=== PATIENT | female | born 1940 | race Caucasian/White ===

== ENCOUNTER 2017-06-16 06:00 | Day surgery (SDC) | payer MEDICARE, BC ==
[2017-06-16] MEDS ORDERED: ACETAZOLAMIDE 500 MG CER ONE (06:02)
[2017-06-16] MEDS ORDERED: KETOROLAC 0.5% OPTH 60 DROP SOL ONE (06:03)
[2017-06-16] MEDS ORDERED: ACETAZOLAMIDE 250 MG PO ONE (06:04)
[2017-06-16] MEDS: PROPARACAINE HCL 0.5% OPHTHALMIC SOL ONE ×3 (06:19→07:38)
[2017-06-16] MEDS: PHENYLEPHRINE HCL 10% OPHTHAL SOL ONE ×2 (06:20→06:33)
[2017-06-16] MEDS: CYCLOPENTOLATE 1% SOL ONE ×3 (06:20→06:35)
[2017-06-16 06:25] VITALS: PULSE 84; RESP 20
[2017-06-16] MEDS ORDERED: FENTANYL 100MCG/2ML SOL ONE (06:52)
[2017-06-16] MEDS ORDERED: MIDAZOLAM 2 MG/2 ML SOL ONE (06:53)
[2017-06-16] MEDS ORDERED: POVIDONE IODINE 5% SOL ONE (06:58)
[2017-06-16] MEDS ORDERED: BSS 500 ML 500 ML IR ONE (06:58)
[2017-06-16] MEDS ORDERED: LIDOCAINE HCL 1% MPF SOL ONE (06:58)
[2017-06-16] MEDS ORDERED: KETOROLAC TROMETHAMINE 30 MG/ML SOL ONE (07:14)
[2017-06-16] MEDS ORDERED: CEFUROXIME SODIUM/0.9% NACL/PF 10 MG/ML VIAL IO ONE (07:14)
[2017-06-16] MEDS ORDERED: TRIAMCINOLONE ACETONIDE 10 MG/ML VIAL ONE (07:21)
[2017-06-16] MEDS ORDERED: TRIAMCINOLONE ACETONIDE 40 MG/ML SUS ONE (07:21)
[2017-06-16 08:16] VITALS: BP 127/70; TEMP 98; O2SAT 97
== END 2017-06-16 08:30 | disposition home or self-care (01) | DRG 125 ==
LOC: SURG 06:00
PROVIDERS: ATTEND Ophthalmology
DX: H26.9 Unspecified cataract (principal)
CPT/HCPCS: J1885; J2250; J3010; A9270-GY; J0697; J2001; J3300

== ENCOUNTER 2018-08-04 07:31 | Day surgery (SDC) | payer BC, MEDICARE ==
[2018-08-04] MEDS ORDERED: PROPOFOL 500 MG/50 ML EMU IV ONE (07:54)
[2018-08-04] MEDS ORDERED: FENTANYL 100MCG/2ML SOL ONE (07:54)
[2018-08-04] MEDS ORDERED: LIDOCAINE HCL 1% MPF 30 SOL ONE (07:54)
[2018-08-04] MEDS ORDERED: CEFAZOLIN SODIUM 1 GM PDS ONE ×3 (09:01→09:02)
[2018-08-04] MEDS: BUPIVACAINE/EPI 0.5% 10 ML SOL INFIL ONE ×2 (09:07→09:15)
[2018-08-04] MEDS ORDERED: EPHEDRINE SULFATE 50 MG/ML SOL ONE (09:34)
[2018-08-04 10:46] VITALS: RESP 17; TEMP 96.2
[2018-08-04 10:59] VITALS: O2SAT 97
[2018-08-04] MEDS ORDERED: APAP/HYDROCODONE 1 EACH TABLET PO PRN (11:03)
[2018-08-04] MEDS ORDERED: KETOROLAC TROMETHAMINE 30 MG/ML SOL IV PRN (11:04)
[2018-08-04] MEDS ORDERED: MORPHINE SULFATE 10 MG/ML SOL IV PRN (11:05)
[2018-08-04] MEDS ORDERED: ONDANSETRON HCL 4 MG/2 ML SOL IV PRN (11:09)
[2018-08-04 11:25] VITALS: BP 145/85; PULSE 74
== END 2018-08-04 12:10 | disposition home or self-care (01) | DRG 395 ==
LOC: SURG 07:31 → ACUTE CARE 10:23 → SURG 12:10
PROVIDERS: ATTEND Surgery
DX: K40.90 Unilateral inguinal hernia, without obstruction or gangrene, not specified as recurrent (principal)
CPT/HCPCS: J0690; J2405; J3010; A6402; A9270-GY; C1781; J2001; J2704; J3490